=== PATIENT | female | born 1980 | race Caucasian/White ===

== ENCOUNTER 2018-12-31 13:01 | Emergency (ER) | payer MEDICARE ==
[~2018-12-31] VITALS: Ht 162.6 cm; Wt 147.0 kg
[2018-12-31 13:15] VITALS: BP 149/85
[2018-12-31] MEDS ORDERED: DEXAMETHASONE 4 MG TABLET PO STA (13:16)
--- NOTE | 2018-12-31 13:29 | PHYS DOC ---
Past Medical History Past Medical History: Hypertension, Migraines Additional Past Medical Histor: PTSD Past Surgical History: Alcohol Use: None Drug Use: None Adult General Chief Complaint Chief Complaint: COUGH HPI HPI Patient is a 38 year old female who presents with a cough this been ongoing for several weeks. The patient is a heavy smoker and smokes multiple packs of cigarettes per day. She states she's been smoking for over 30 years. The patient states that she's also been having a runny nose and congestion over the last several days. Patient states that she's also has left ear pain. Denies any fevers. States the only pain she has is when she coughs. Review of Systems Review of Systems Constitutional: Denies fever or chills [] Eyes: Denies change in visual acuity, redness, or eye pain [] HENT: Reports nasal congestion and runny nose. Respiratory: Reports cough Cardiovascular: No additional information not addressed in HPI [] GI: Denies abdominal pain, nausea, vomiting, bloody stools or diarrhea [] : Denies dysuria or hematuria [] Musculoskeletal: Denies back pain or joint pain [] Integument: Denies rash or skin lesions [] Neurologic: Denies headache, focal weakness or sensory changes [] Endocrine: Denies polyuria or polydipsia [] Complete systems were reviewed and found to be within normal limits, except as documented in this note. Current Medications Current Medications Current Medications Medications (Trade) Dose Ordered Sig/[facility] Start Time Stop Time Status Last Admin Dose Admin Albuterol/ Ipratropium (Duoneb) 3 ml 1X ONCE 12/31/18 13:45 12/31/18 13:46 DC 12/31/18 13:41 3 ML Dexamethasone (Decadron) 10 mg 1X STAT 12/31/18 13:16 12/31/18 13:20 DC 12/31/18 13:29 10 MG Allergies Allergies Allergies Coded Allergies Type Severity Reaction Last Updated Verified No Known Drug Allergies 12/31/18 No Physical Exam Physical Exam Constitutional: Well developed, well nourished, no acute distress, non-toxic appearance. [] HENT: Normocephalic, atraumatic, bilateral external ears normal, oropharynx moist, no oral exudates, nose normal. [] Eyes: PERRLA, EOMI, conjunctiva normal, no discharge. [] Neck: Normal range of motion, no tenderness, supple, no stridor. [] Cardiovascular:Heart rate regular rhythm, no murmur [] Lungs & Thorax: Bilateral breath sounds has diffuse expiratory wheezing. Abdomen: Bowel sounds normal, soft, no tenderness, no masses, no pulsatile masses. [] Skin: Warm, dry, no erythema, no rash. [] Back: No tenderness, no CVA tenderness. [] Extremities: No tenderness, no cyanosis, no clubbing, ROM intact, no edema. [] Neurologic: Alert and oriented X 3, normal motor function, normal sensory function, no focal deficits noted. [] Psychologic: Affect normal, judgement normal, mood normal. [] Current Patient Data Vital Signs Vital Signs Date Time Temp Pulse Resp B/P (MAP) Pulse Ox O2 Delivery O2 Flow Rate FiO2 12/31/18 13:42 95 Room Air 12/31/18 13:15 98.4 114 20 149/85 (106) 98.4 EKG EKG [] Radiology/Procedures Radiology/Procedures [][facility] [address] [place] [address] IMAGING REPORT Signed PATIENT: SHANTEL WATSON ACCOUNT: [id number] : 1980 LOCATION: ER AGE: 38 SEX: F EXAM STATUS: REG ER ORD. PHYSICIAN: ROMINA PAREKH APRN REASON: cough,pt states wheezing too. PROCEDURE: CHEST PA & LATERAL EXAM: Chest, 2 views. HISTORY: Wheezing. Cough. COMPARISON: None. FINDINGS: 2 views of the chest are obtained. There is no infiltrate, pleural effusion or pneumothorax. The heart is normal in size. IMPRESSION: No acute pulmonary finding. Electronically signed by: Monse Rocha MD (12/31/2018 2:32 PM) [facility] DICTATED and SIGNED BY: MONSE ROCHA MD DATE: 12/31/18 1434 Course & Med Decision Making Course & Med Decision Making Pertinent Labs and Imaging studies reviewed. (See chart for details) Will get chest x-ray, breathing treatment, and give Decadron. Patient is feeling better after treatment will d/c home. Dragon Disclaimer Dragon Disclaimer This electronic medical record was generated, in whole or in part, using a voice recognition dictation system. Departure Departure Impression: Primary Impression: Cough Disposition: 01 HOME, SELF-CARE Condition: STABLE Referrals: UNKNOWN PCP NAME (PCP) Patient Instructions: Allergic Rhinitis Additional Instructions: Thank you for visiting [facility]. We appreciate you trusting us with your care. If any additional problems come up don't hesitate to return to visit us. Please follow up with your primary care provider so they can plan additional care if needed and know about the problem that you had. If symptoms worsen come back to the Emergency Department. Any concerning symptoms that start such as chest pain, shortness of air, weakness or numbness on one side of the body, running high fevers or any other concerning symptoms return to the ER. Please start taking Zyrtec daily. ROMINA PAREKH APRN Dec 31, 2018 13:29
[2018-12-31] MEDS ORDERED: IPRATRPIUM/ALBUTEROL 0.5/2.5MG 3 ML NEBU. NEB ONE (13:45)
--- NOTE | 2018-12-31 14:35 | RAD ---
EXAM: Chest, 2 views. HISTORY: Wheezing. Cough. COMPARISON: None. FINDINGS: 2 views of the chest are obtained. There is no infiltrate, pleural effusion or pneumothorax. The heart is normal in size. IMPRESSION: No acute pulmonary finding. Electronically signed by: Monse Morton MD (12/31/2018 2:32 PM) [place] [id number]
== END 2018-12-31 15:00 | disposition home or self-care (01) ==
LOC: ER 13:01
DX: R05 Cough (principal); R09.89 Other specified symptoms and signs involving the circulatory and respiratory systems; R09.81 Nasal congestion; G43.909 Migraine, unspecified, not intractable, without status migrainosus; I10 Essential (primary) hypertension; F17.210 Nicotine dependence, cigarettes, uncomplicated
CPT/HCPCS: 71046; 94640; 99284; J7620; J8540

== ENCOUNTER 2020-11-18 16:04 | Emergency (ER) | payer BC, MEDICARE ==
[~2020-11-18] VITALS: Ht 162.6 cm; Wt 122.7 kg
[2020-11-18] MEDS ORDERED: ACETAMINOPHEN 500 MG TABLET PO ONE (16:30)
[2020-11-18] MEDS ORDERED: IV NORMAL SALINE 1000ML BAG 1,000 ML IV ONE (16:30)
[2020-11-18] MEDS ORDERED: methylPREDNISolone SOD SUCC PF 125 MG/2 ML VIAL. IV ONE (16:30)
--- NOTE | 2020-11-18 16:35 | EKG ---
[facility] [address] [place] [address] Test Date: 2020-11-18 Test Time: 16:30:27 Pat Name: SHANTEL WATSON Department: Room: Gender: F [employer]: : 1980 Requested By: SOFI ROACH Order Number: [id number] Reading MD: Measurements Intervals [place] Rate: 107 P: 48 MS: 100 QRS: -24 QRSD: 78 T: 44 QT: 334 QTc: 445 Interpretive Statements No previous ECG available for comparison
[2020-11-18 17:02] LABS: BASO # 0.1 x10^3/uL (0.0-0.2); BASO % 1 % (0-3); EOS # 0.2 x10^3/uL (0.0-0.7); EOS % 2 % (0-3); HEMATOCRIT 36.8 % (36.0-47.0); LYMPH # 1.6 x10^3/uL (1.0-4.8); LYMPH % 15 % (24-48); MEAN CORPUSCULAR HEMOGLOBIN 27 pg (25-35); MEAN CORPUSCULAR HGB CONC 33 g/dL (31-37); MEAN CORPUSCULAR VOLUME 81 fL (79-100); MONO # 0.6 x10^3/uL (0.0-1.1); MONO % 6 % (0-9); NEUT # 7.8 x10^3/uL (1.8-7.7); NEUT % 76 % (31-73); PLATELET COUNT 398 x10^3/uL (140-400); RED BLOOD COUNT 4.53 x10^6/uL (3.50-5.40); RED CELL DISTRIBUTION WIDTH 15.2 % (11.5-14.5); WHITE BLOOD COUNT 10.3 x10^3/uL (4.0-11.0)
--- NOTE | 2020-11-18 17:15 | RAD ---
XR CHEST 1V CLINICAL INDICATIONS: Shortness of air COMPARISON: December 31, 2018. Findings: No acute lung infiltrate or pleural effusion or pulmonary edema or lung mass or pneumothora x is seen. The heart size, pulmonary vasculature, mediastinum and both raina are unremarkable. IMPRESSION: No acute radiographic abnormality is seen. Electronically signed by: Diogo Michel MD (11/18/2020 5:12 PM) [id number]
[2020-11-18 17:19] LABS: CALCIUM 9.3 mg/dL (8.5-10.1); CREATININE 0.9 mg/dL (0.6-1.0); POTASSIUM 3.5 mmol/L (3.5-5.1)
[2020-11-18 17:30] LABS: ALBUMIN 3.5 g/dL (3.4-5.0); ALBUMIN/GLOBULIN RATIO 0.7 (1.0-1.7); MAGNESIUM 2.1 mg/dL (1.8-2.4); TOTAL BILIRUBIN 0.3 mg/dL (0.2-1.0); TOTAL PROTEIN 8.2 g/dL (6.4-8.2)
[2020-11-18 17:50] VITALS: BP 140/61
[2020-11-18] MEDS ORDERED: IOHEXOL 350 MG/ML 100 ML VIAL. IV ONE (18:30)
[2020-11-18] MEDS ORDERED: CONTRAST GIVEN. MC PRN (18:30)
--- NOTE | 2020-11-18 20:45 | RAD ---
CTA CHEST INDICATION: SOA Comparison: None. TECHNIQUE: Following the uneventful administration of intravenous contrast, 100 cc Omnipaque 350, axi al CT sections were obtained through the lungs and upper abdomen. Multiplanar reconstructions and MIP images were obtained. PQRS compliance statement: One or more of the following individualized dose reduction techniques were utilized for this examinat ion: 1. Automated exposure control 2. Adjustment of the mA and/or kV according to patient size 3. Use of iterative reconstruction technique FINDINGS: Pulmonary arteries: No evidence of pulmonary thromboembolic disease Lungs and Airways: No pulmonary mass or consolidation. Right lobe indeterminate solid pulmonary nodul e measuring 4 mm (series 3 image 92) No abnormality of the central airways. Pleura: The pleural spaces are normal. Heart and Mediastinum: The visualized thyroid is normal in size and attenuation. Enlarged left suprac lavicular lymph node measures 1 cc and short axis (series 3 image 14). Few conspicuous but not pathol ogically enlarged by CT criteria mediastinal lymph nodes. The heart and pericardium are within normal limits. The great vessels of the thorax are normal. Abdomen: Several mildly enlarged upper abdominal lymph nodes. Bones and Soft Tissues: The visualized bones and chest wall soft tissues are within normal limits. IMPRESSION: 1. No evidence of pulmonary thromboembolic disease. No pulmonary mass or consolidation. 2. Mildly enlarged upper abdominal and left supraclavicular lymph nodes with additional conspicuous m ediastinal lymph nodes, of indeterminate etiology. While these may be reactive, lymphoproliferative d isorder or metastatic disease would be difficult to exclude. Clinical correlation is advised. Additio nal workup and/or follow-up imaging in 6-10 weeks may be of benefit. 3. Indeterminate right lower lobe 4 mm nodule. Attention on follow-up imaging Electronically signed by: Phil Barrera MD (11/18/2020 8:42 PM) [facility]
[2020-11-18] MEDS ORDERED: BENZ100C PO (21:35)
[2020-11-18] MEDS ORDERED: PRED50TA PO (21:35)
[2020-11-18] MEDS ORDERED: ALBU2.5V8 IH (21:35)
--- NOTE | 2020-11-18 21:36 | PHYS DOC ---
Past Medical History Past Medical History: Hypertension, Migraines Additional Past Medical Histor: PTSD AGORAPHOBIA Past Surgical History: Smoking Status: Current Every Day Smoker Alcohol Use: None Drug Use: None General Adult EDM: Chief Complaint: SHORTNESS OF BREATH HPI: HPI: Patient is a 40 year old female with history of hypertension, migraine headaches, who presents the ED today complaining of cough, shortness of breath, wheezing, symptoms began today. Patient denies any fever. She states she is unvaccinated from COVID-19. She states she is a current smoker Review of Systems: Review of Systems: Constitutional: Denies fever or chills. [] Eyes: Denies change in visual acuity. [] HENT: Denies nasal congestion or sore throat. [] Respiratory: Reports cough, wheezing and shortness of breath. [] Cardiovascular: Denies chest pain or edema. [] GI: Denies abdominal pain, nausea, vomiting, bloody stools or diarrhea. [] : Denies dysuria. [] Musculoskeletal: Denies back pain or joint pain. [] Integument: Denies rash. [] Neurologic: Denies headache, focal weakness or sensory changes. [] Psychiatric: Denies depression or anxiety. [] Heart Score: C/O Chest Pain: N/A Risk Factors: Risk Factors: DM, Current or recent (<one month) smoker, HTN, HLP, family history of CAD, obesity. Risk Scores: Score 0 - 3: 2.5% MACE over next 6 weeks - Discharge Home Score 4 - 6: 20.3% MACE over next 6 weeks - Admit for Clinical Observation Score 7 - 10: 72.7% MACE over next 6 weeks - Early Invasive Strategies Current Medications: Current Medications Medications (Trade) Dose Ordered Sig/Jes[facility]s Start Time Stop Time Status Last Admin Dose Admin Acetaminophen (Tylenol) 1,000 mg 1X ONCE 11/18/20 16:30 11/18/20 16:35 DC 11/18/20 16:50 1,000 MG Info (CONTRAST GIVEN -- Rx MONITORING) 1 each PRN DAILY PRN 11/18/20 18:30 11/20/20 18:29 Iohexol (Omnipaque 350 Mg/ml) 100 ml 1X ONCE 11/18/20 18:30 11/18/20 18:31 DC 11/18/20 18:30 100 ML Methylprednisolone Sodium Succinate (SOLU-Medrol 125MG VIAL) 125 mg 1X ONCE 11/18/20 16:30 11/18/20 16:35 DC 11/18/20 16:49 125 MG Sodium Chloride 1,000 ml @ 1,000 mls/hr 1X ONCE 11/18/20 16:30 11/18/20 17:29 DC 11/18/20 16:49 1,000 MLS/HR Allergies: Allergies: Allergies Coded Allergies Type Severity Reaction Last Updated Verified No Known Drug Allergies 12/31/18 No Physical Exam: PE: Constitutional: Well developed, well nourished, no acute distress, non-toxic appearance. [] HENT: Normocephalic, atraumatic, bilateral external ears normal, oropharynx moist, no oral exudates, nose normal. [] Eyes: PERRLA, EOMI, conjunctiva normal, no discharge. [] Neck: Normal range of motion, no tenderness, supple, no stridor. [] Cardiovascular:Heart rate regular rhythm, no murmur [] Lungs & Thorax: Bilateral breath sounds clear to auscultation [] Abdomen: Bowel sounds normal, soft, no tenderness, no masses, no pulsatile ma sses. [] Skin: Warm, dry, no erythema, no rash. [] Back: No tenderness, no CVA tenderness. [] Extremities: No tenderness, no cyanosis, no clubbing, ROM intact, no edema. [] Neurologic: Alert and oriented X 3, normal motor function, normal sensory function, no focal deficits noted. [] Psychologic: Affect normal, judgement normal, mood normal. [] Current Patient Data: Labs: Laboratory Tests Test 11/18/20 16:28 11/18/20 16:45 11/18/20 19:04 SARS-CoV-2 Antigen (Rapid) Negative (NEGATIVE) White Blood Count 10.3 x10^3/uL (4.0-11.0) Red Blood Count 4.53 x10^6/uL (3.50-5.40) Hemoglobin 12.0 g/dL (12.0-15.5) Hematocrit 36.8 % (36.0-47.0) Mean Corpuscular Volume 81 fL (79-100) Mean Corpuscular Hemoglobin 27 pg (25-35) Mean Corpuscular Hemoglobin Concent 33 g/dL (31-37) Red Cell Distribution Width 15.2 % (11.5-14.5) H Platelet Count 398 x10^3/uL (140-400) Neutrophils (%) (Auto) 76 % (31-73) H Lymphocytes (%) (Auto) 15 % (24-48) L Monocytes (%) (Auto) 6 % (0-9) Eosinophils (%) (Auto) 2 % (0-3) Basophils (%) (Auto) 1 % (0-3) Neutrophils # (Auto) 7.8 x10^3/uL (1.8-7.7) H Lymphocytes # (Auto) 1.6 x10^3/uL (1.0-4.8) Monocytes # (Auto) 0.6 x10^3/uL (0.0-1.1) Eosinophils # (Auto) 0.2 x10^3/uL (0.0-0.7) Basophils # (Auto) 0.1 x10^3/uL (0.0-0.2) Sodium Level 137 mmol/L (136-145) Potassium Level 3.5 mmol/L (3.5-5.1) Chloride Level 104 mmol/L (98-107) Carbon Dioxide Level 23 mmol/L (21-32) Anion Gap 10 (6-14) Blood Urea Nitrogen 11 mg/dL (7-20) Creatinine 0.9 mg/dL (0.6-1.0) Estimated GFR (Cockcroft-Gault) 69.0 BUN/Creatinine Ratio 12 (6-20) Glucose Level 114 mg/dL (70-99) H Lactic Acid Level 1.0 mmol/L (0.4-2.0) Calcium Level 9.3 mg/dL (8.5-10.1) Magnesium Level 2.1 mg/dL (1.8-2.4) Total Bilirubin 0.3 mg/dL (0.2-1.0) Aspartate Amino Transferase (AST) 13 U/L (15-37) L Alanine Aminotransferase (ALT) 19 U/L (14-59) Alkaline Phosphatase 154 U/L (46-116) H Troponin I Quantitative < 0.017 ng/mL (0.000-0.055) < 0.017 ng/mL (0.000-0.055) RD-Ofu-Q-Type Natriuretic Peptide 53 pg/mL (0-124) Total Protein 8.2 g/dL (6.4-8.2) Albumin 3.5 g/dL (3.4-5.0) Albumin/Globulin Ratio 0.7 (1.0-1.7) L Procalcitonin < 0.10 ng/mL (0.00-0.10) Thyroid Stimulating Hormone (TSH) 0.820 uIU/mL (0.358-3.74) Laboratory Tests 11/18/20 16:45 Laboratory Tests 11/18/20 16:45 Vital Signs: Vital Signs Date Time Temp Pulse Resp B/P (MAP) Pulse Ox O2 Delivery O2 Flow Rate FiO2 11/18/20 17:50 104 140/61 (87) 93 Room Air 11/18/20 16:28 99.1 22 99.1 EKG: EKG: [] Radiology/Procedures: Radiology/Procedures: []PROCEDURE: PORTABLE CHEST 1V XR CHEST 1V CLINICAL INDICATIONS: Shortness of air COMPARISON: December 31, 2018. Findings: No acute lung infiltrate or pleural effusion or pulmonary edema or lung mass or pneumothorax is seen. The heart size, pulmonary vasculature, mediastinum and both raina are unremarkable. IMPRESSION: No acute radiographic abnormality is seen. Electronically signed by: Chely Michel MD (11/18/2020 5:12 PM) [id number] DICTATED and SIGNED BY: CHELY MICHEL MD DATE: 11/18/20 [id number] PROCEDURE: CT ANGIOGRAPHY CHEST CTA CHEST INDICATION: SOA Comparison: None. TECHNIQUE: Following the uneventful administration of intravenous contrast, 100 cc Omnipaque 350, axial CT sections were obtained through the lungs and upper abdomen. Multiplanar reconstructions and MIP images were obtained. PQRS compliance statement: One or more of the following individualized dose reduction techniques were utilized for this examination: 1. Automated exposure control 2. Adjustment of the mA and/or kV according to patient size 3. Use of iterative reconstruction technique FINDINGS: Pulmonary arteries: No evidence of pulmonary thromboembolic disease Lungs and Airways: No pulmonary mass or consolidation. Right lobe indeterminate solid pulmonary nodule measuring 4 mm (series 3 image 92) No abnormality of the central airways. Pleura: The pleural spaces are normal. Heart and Mediastinum: The visualized thyroid is normal in size and attenuation. Enlarged left supraclavicular lymph node measures 1 cc and short axis (series 3 image 14). Few conspicuous but not pathologically enlarged by CT criteria mediastinal lymph nodes. The heart and pericardium are within normal limits. The great vessels of the thorax are normal. Abdomen: Several mildly enlarged upper abdominal lymph nodes. Bones and Soft Tissues: The visualized bones and chest wall soft tissues are within normal limits. IMPRESSION: 1. No evidence of pulmonary thromboembolic disease. No pulmonary mass or consolidation. 2. Mildly enlarged upper abdominal and left supraclavicular lymph nodes with additional conspicuous mediastinal lymph nodes, of indeterminate etiology. While these may be reactive, lymphoproliferative disorder or metastatic disease would be difficult to exclude. Clinical correlation is advised. Additional workup and/or follow-up imaging in 6-10 weeks may be of benefit. 3. Indeterminate right lower lobe 4 mm nodule. Attention on follow-up imaging Electronically signed by: Justin Barrera MD (11/18/2020 8:42 PM) [facility] DICTATED and SIGNED BY: JUSTIN BARRERA MD DATE: 11/18/[id number] 0 Course & Med Decision Making: Course & Med Decision Making Pertinent Labs and Imaging studies reviewed. (See chart for details) This is a 40-year-old female patient presented to the ED today with cough, shortness of breath, wheezing, symptoms began today. Patient arrives in the ED with a temperature of 99.1, heart rate 126, blood pressure 197/111, O2 sats 95% on room air. Patient was given IV fluids, blood pressure came down to 140/61 with a heart rate of 104. Labs negative for any acute findings, negative rapid Covid test. Negative chest x-ray, CTA chest was obtained for tachycardia and shortness of breath, negative for PE, noted for reactive lymph fluid enlarged upper abdominal and left supraclavicular lymph nodes with additional conspicuous mediastinal lymph nodes, of indeterminate etiology right lung needle. Patient instructed to follow-up with her own primary care doctor. Advised to consider smoking cessation. Dragon Disclaimer: [place] Disclaimer: This electronic medical record was generated, in whole or in part, using a voice recognition dictation system. Departure Departure Impression: Primary Impression: Acute bronchitis Qualified Codes: J20.9 - Acute bronchitis, unspecified Additional Impressions: Shortness of breath Person under investigation for COVID-19 Disposition: 01 HOME / SELF CARE / HOMELESS Condition: STABLE Referrals: UNKNOWN PCP NAME (PCP) follow up with your doctor in 1-2 weeks Patient Instructions: Acute Bronchitis, Smoking Cessation, Tips For Success Additional Instructions: You were evaluated in the emergency room, you have a pending PCR Covid test. Please quarantine yourself until we call you with the results. Consider smoking cessation. We sent an inhaler to your pharmacy. Use it as needed for shortness of breath. Follow-up with your doctor in 1 to 2 weeks. Scripts Albuterol Sulfate (Proair Hfa) 8.5 Gm Hfa.aer.ad 2 PUFF IH PRN Q4-6HRS PRN for wheezing for 21 Days, #1 INHALER 0 Refills Prov: SOFI ROACH APRN 11/18/20 Prednisone (PREDNISONE) 50 Mg Tablet 1 TAB PO DAILY, #5 TAB Prov: SOFI ROACH APRN 11/18/20 Benzonatate (TESSALON PERLE) 100 Mg Capsule 1 CAP PO TID, #30 CAP Prov: SOFI ROACH APRN 11/18/20 SOFI ROACH APRN Nov 18, 2020 21:36
--- NOTE | 2020-11-19 15:50 | NUR ---
IP: Attempted to contact pt concerning covid results. No answer, left a voicemail to return the call. Addendum: 11/19/20 at 1552 by JOCELYNN VAZQUEZ RN Pt returned call immediately. Informed pt of negative test. Pt verbalized understanding.
== END 2020-11-18 23:15 | disposition home or self-care (01) ==
LOC: ER 16:04
DX: J20.9 Acute bronchitis, unspecified (principal); I10 Essential (primary) hypertension; G43.909 Migraine, unspecified, not intractable, without status migrainosus; F17.200 Nicotine dependence, unspecified, uncomplicated; Z20.822 Contact with and (suspected) exposure to COVID-19
CPT/HCPCS: 36415; 71045; 71275; 80053; 83605; 83735; 83880; 84145; 84443; 84484; 85025; 87040; 87426; 93005; 96361; 96374; 99285; J2930; J7030; Q9967; U0003; U0005